=== PATIENT | male | born 1960 | race Caucasian/White ===

== ENCOUNTER 2021-12-10 14:00 | Outpatient (RCR) | payer BC, SELFPAY | END 2022-11-23 11:14 | disposition home or self-care (01) | PROVIDERS: PCP Family Medicine; Visit Provider Orthopaedic Surgery Sports Medicine | DX: M25.511 Pain in right shoulder (principal); Z51.89 Encounter for other specified aftercare | CPT/HCPCS: 97110; 97140 ==